=== PATIENT | male | born 1990 | race American Indian/Alaskan Native ===

== ENCOUNTER 2017-12-12 11:06 | Emergency (ER) | payer MEDICAID ==
[2017-12-12 11:10] VITALS: BMI 23.7
[2017-12-12 11:12] VITALS: RESP 20
[2017-12-12 11:26] VITALS: O2SAT 98
[2017-12-12] MEDS ORDERED: Iohexol 240 (50 ml) PO ONE (11:27)
[2017-12-12] MEDS ORDERED: Sodium Chloride 0.9% 1,000 ML IV STA (11:27)
--- NOTE | 2017-12-12 11:36 | ED PDOC ---
HPI: Abdomen Time Seen by Provider: 12/12/17 11:17 Chief Complaint (Nursing): Abdominal Pain Chief Complaint (Provider): Abd pain History Per: Patient Onset/Duration Of Symptoms: Days (3) Additional Complaint(s): Pt. with abd pain right lower. Nausea, vomit. Pain comes and goes. [place] [facility] [place] and had ct and dc. PT. denies diarrhea. No weakness, chest pain, dyspnea, back pain, testicular pain. No numbness, tingles. Denies new food, drinks, or alcohol/drugs. Past Medical History Reviewed: Nursing Documentation, Vital Signs Vital Signs: Last Vital Signs Temp 97.9 F 12/12/17 11:10 Pulse 49 L 12/12/17 11:10 Resp 20 12/12/17 11:10 BP 150/92 H 12/12/17 11:10 Pulse Ox 98 12/12/17 11:49 - Medical History PMH: No Chronic Diseases - Surgical History Other surgeries: hand - Family History Family History: States: Unknown Family Hx - Immunization History Hx Tetanus Toxoid Vaccination: No Hx Influenza Vaccination: No Hx Pneumococcal Vaccination: No - Home Medications Home Medications: Ambulatory Orders Medication Instructions Recorded Famotidine [Pepcid] 20 mg PO BID #20 tab 12/10/17 Naproxen 500 mg PO DAILY 12/10/17 Naproxen [Naprosyn] 500 mg PO BID PRN #16 tab 12/10/17 Ondansetron ODT [Zofran ODT] 4 mg PO TID PRN #12 odt 12/10/17 Famotidine [Pepcid] 20 mg PO DAILY PRN #6 tab 12/12/17 Ibuprofen [Motrin] 600 mg PO TID 7 Days tab 12/12/17 - Allergies Allergies/Adverse Reactions: Allergies Allergy/AdvReac Type Severity Reaction Status Date / Time No Known Allergies Allergy Unverified 12/10/17 06:22 Review of Systems ROS Statement: Except As Marked, All Systems Reviewed And Found Negative Gastrointestinal: Positive for: Nausea, Vomiting, Abdominal Pain Physical Exam - Reviewed Nursing Documentation Reviewed: Yes Vital Signs Reviewed: Yes - Physical Exam Appears: Positive for: Non-toxic, No Acute Distress Head Exam: Positive for: ATRAUMATIC, NORMAL INSPECTION, NORMOCEPHALIC Skin: Positive for: Normal Color, Warm, DRY Eye Exam: Positive for: EOMI, Normal appearance, PERRL ENT: Positive for: Normal ENT Inspection Neck: Positive for: Normal, Painless ROM Cardiovascular/Chest: Positive for: Regular Rate, Rhythm Respiratory: Positive for: CNT, Normal Breath Sounds Gastrointestinal/Abdominal: Positive for: Soft, Tenderness (RLQ) Back: Positive for: Normal Inspection Extremity: Positive for: Normal ROM Neurologic/Psych: Positive for: Alert, Oriented - Laboratory Results Result Diagrams: 12/12/17 11:30 12/12/17 11:35 Interpretation Of Abn Labs: platelets 79 - ECG O2 Sat by Pulse Oximetry: 98 Pulse Ox Interpretation: Normal - CT Scan/US ct Other Rad Studies (CT/US): Read By Radiologist Other Rad Interpretation: adenitis - Progress ED Course And Treament: 1500: Stable. AAOx3. Pain free. Tolerated po. Pt. made aware of liver lucency and bp elevation. Fu with pcp. Disposition - Clinical Impression Clinical Impression: Mesenteric adenitis, HTN (hypertension), Liver lesion - Patient ED Disposition Is Patient to be Admitted: No Counseled Patient/Family Regarding: Studies Performed, Diagnosis, Need For Followup, Rx Given - Disposition Referrals: [facility] [Outside] - 12/15/17 Crow Bonilla MD [Staff Provider] - 12/15/17 Disposition: Routine/Home Disposition Time: 15:07 Condition: STABLE Additional Instructions: Return if not better in 3 days. You have a liver lesion, make sure to follow up with the master automotive technician in 3 days. Your blood pressure is high, see the clinic for follow up in 3 days. Prescriptions: Famotidine [Pepcid] 20 mg PO DAILY PRN #6 tab PRN Reason: Pain Ibuprofen [Motrin] 600 mg PO TID 7 Days tab Instructions: Mesenteric Lymphadenitis (DC), High Blood Pressure in Adults
[2017-12-12] MEDS ORDERED: Iohexol 240 (50 ml) ONE (11:41)
[2017-12-12 12:10] LABS: BASO # 0.1 K/uL (0.0-0.2); EOS # 0.1 K/uL (0.0-0.7); EOS % 1.5 % (0.0-4.0); HEMOGLOBIN 15.3 g/dL (12.0-18.0); LYMPH % 53.3 % (20.0-40.0); MEAN CELL VOLUME 93.8 fl (80.0-94.0); MEAN CORPUSCULAR HEMOGLOBIN 31.9 pg (27.0-31.0); MEAN PLATELET VOLUME 8.2 fl (7.2-11.7); MONO # 0.4 K/uL (0.0-0.8); MONO % 6.8 % (0.0-10.0); NEUT # 2.1 K/uL (1.8-7.0); NEUT % 37.4 % (50.0-75.0); NRBC % 0.1 % (0.0-0.0); RBC 4.79 Mil/uL (4.40-5.90); RED CELL DISTRIBUTION WIDTH 13.2 % (11.5-14.5); WHITE BLOOD COUNT 5.6 K/uL (4.8-10.8)
[2017-12-12 12:22] LABS: ALB/GLOB RATIO 1.3 (1.0-2.1); ALBUMIN 4.8 g/dL (3.5-5.0); ALT/SGPT 21 U/L (21-72); AST/SGOT 36 U/L (17-59); BLOOD UREA NITROGEN 17 mg/dl (9-20); GFR AFRICAN-AMERICAN > 60; GFR NON-AFRICAN AMERICAN > 60; LIPASE 74 U/L (23-300)
[2017-12-12] MEDS ORDERED: Iohexol 300 100 ML IJ ONE (13:00)
--- NOTE | 2017-12-12 14:42 | CT ---
Date of service: 12/12/2017 PROCEDURE: CT Abdomen and Pelvis with contrast HISTORY: abd pain COMPARISON: None. TECHNIQUE: Following oral and intravenous contrast administration, a CT examination of the abdomen and pelvis performed from the domes of the diaphragms to the symphysis pubis with reformatted datasets provided not only axial but also sagittal and coronal series. Contrast dose: Omnipaque 300, 95 cc Radiation dose: Total exam DLP = 541.37 mGy-cm. This CT exam was performed using one or more of the following dose reduction techniques: Automated exposure control, adjustment of the mA and/or kV according to patient size, and/or use of iterative reconstruction technique. FINDINGS: LOWER THORAX: Unremarkable. LIVER: There is a tiny lucency seen at the medial left lobe liver too small to characterize. No gross lesion or ductal dilatation. GALLBLADDER AND BILE DUCTS: Unremarkable. PANCREAS: Unremarkable. No gross lesion or ductal dilatation. SPLEEN: Unremarkable. ADRENALS: Unremarkable. No mass. KIDNEYS AND URETERS: Unremarkable. No hydronephrosis. No solid mass. VASCULATURE: Unremarkable. No aortic aneurysm. BOWEL: Unremarkable. No obstruction. No gross mural thickening. APPENDIX: Normal appendix. PERITONEUM: There is borderline lymphadenopathy this central mesentery but none in the pericecal or ascending colon component of the mesentery. The pattern is borderline for mesenteric adenitis. No mesenteric reaction, free fluid or free air. LYMPH NODES: No prominent enlarged lymph nodes. BLADDER: Unremarkable. REPRODUCTIVE: Unremarkable. BONES: No acute fracture. OTHER FINDINGS: None. IMPRESSION: Borderline mesenteric adenitis pattern. No bowel obstruction, free intrarenal gas or ascites. Normal appendix. There is a tiny lucency seen at the medial left lobe liver too small to characterize.
[2017-12-12 15:20] VITALS: BP 114/62; PULSE 78; TEMP 98
== END 2017-12-12 15:18 | disposition home or self-care (01) ==
LOC: H.ER 11:06
DX: I88.0 Nonspecific mesenteric lymphadenitis (principal); I10 Essential (primary) hypertension; K76.9 Liver disease, unspecified
CPT/HCPCS: 74177; 80053; 83690; 85025; 96361; 96374; 96375; 99284; J1885; J2405; J7030; Q9966; Q9967